=== PATIENT | male | born 1990 | race Two or more races ===

== ENCOUNTER → 2023-03-15 | Outpatient (REF) | payer OTHER ==
[2023-03-15 11:32] LABS: SEMEN APPEARANCE OPAQUE (OPAQUE); SEMEN VISCOSITY VISCOUS (LIQUID); SEMEN VOLUME 1.2 ml (2.0-5.0); SPERM CONCENTRATION 17.1 M/ml (>=15.0); WBC CONCENTRATION <=1 M/ml (<=1 M/ml)
== END ==
LOC: M SMT 10:11
PROVIDERS: ATTEND Urology
DX: N46.9 Male infertility, unspecified (principal)

== ENCOUNTER → 2023-07-22 | Outpatient (CLI) | payer OTHER | LOC: M PLAIMG 06:55 | PROVIDERS: ATTEND Orthopaedic Surgery | DX: M54.50 Low back pain, unspecified (principal) ==

== ENCOUNTER → 2023-07-22 | Outpatient (CLI) | payer OTHER ==
[2023-07-22 12:03] LABS: HIV 1&2 SCREEN NEGATIVE (NEGATIVE)
[2023-07-22 12:11] LABS: HEPATITIS C VIRUS ABY INDEX 0.02 INDEX (<0.8)
== END ==
LOC: M PLAIMG 06:58
PROVIDERS: ATTEND Nurse Practitioner Family
DX: Z11.3 Encounter for screening for infections with a predominantly sexual mode of transmission (principal); J45.30 Mild persistent asthma, uncomplicated

== ENCOUNTER 2024-02-20 11:46 | Emergency (ER) | payer OTHER ==
[~2024-02-20] VITALS: Ht 172.7 cm; Wt 115.7 kg
[2024-02-20] MEDS ORDERED: FLUTISP (12:05)
[2024-02-20] MEDS ORDERED: LISI10TA22 (12:05)
[2024-02-20] MEDS ORDERED: NORT25CA2 (12:05)
[2024-02-20] MEDS ORDERED: TRAZ-252 (12:05)
[2024-02-20] MEDS ORDERED: ONDA-282 (12:05)
[2024-02-20] MEDS ORDERED: ALBU2.5V10 (12:05)
[2024-02-20] MEDS ORDERED: EPIN0.3I11 (12:05)
[2024-02-20] MEDS ORDERED: MONT10TA97 (12:05)
[2024-02-20] MEDS ORDERED: ADVA115A (12:05)
[2024-02-20] MEDS ORDERED: LAMO25TA4 (12:05)
[2024-02-20] MEDS ORDERED: OMEP-173 (12:05)
[2024-02-20] MEDS ORDERED: MIRT-10 (12:05)
[2024-02-20] MEDS ORDERED: VENTAER (12:05)
[2024-02-20] MEDS: dexAMETHasone 20MG/5ML VIAL IV ONE (12:38)
[2024-02-20] MEDS ORDERED: PRED20TA PO (14:30)
[2024-02-20 14:45] VITALS: BP 147/75
[2024-02-20 14:46] VITALS: TEMP 98.4; O2SAT 96
== END 2024-02-20 14:51 | disposition home or self-care (01) ==
LOC: M ED 11:46
DX: T63.441A Toxic effect of venom of bees, accidental (unintentional), initial encounter (principal); L29.9 Pruritus, unspecified; I10 Essential (primary) hypertension; F31.9 Bipolar disorder, unspecified; Z88.8 Allergy status to other drugs, medicaments and biological substances; Z79.52 Long term (current) use of systemic steroids; Z79.811 Long term (current) use of aromatase inhibitors; Z79.83 Long term (current) use of bisphosphonates; Z79.899 Other long term (current) drug therapy
CPT/HCPCS: 93041; 94760; 96374; 99285; J1100